=== PATIENT | male | born 1980 | race Caucasian/White ===

== ENCOUNTER 2017-05-29 01:54 | Emergency (ER) | payer OTHER ==
[~2017-05-29] VITALS: Ht 182.9 cm; Wt 86.2 kg
[2017-05-29 05:56] VITALS: BP 134/76
== END 2017-05-29 05:56 | disposition home or self-care (01) ==
LOC: ED 01:54
DX: S81.811A Laceration without foreign body, right lower leg, initial encounter (principal); W25.XXXA Contact with sharp glass, initial encounter; Y93.89 Activity, other specified; Y92.89 Other specified places as the place of occurrence of the external cause; Y99.8 Other external cause status
CPT/HCPCS: 90715

== ENCOUNTER 2020-11-01 12:14 | Emergency (ER) | payer OTHER ==
[~2020-11-01] VITALS: Ht 182.9 cm; Wt 90.7 kg
[2020-11-01 12:24] VITALS: Ht 182.9 cm; Wt 90.7 kg
[2020-11-01 18:40] VITALS: BP 114/77
== END 2020-11-01 18:40 | disposition home or self-care (01) ==
LOC: ED 12:14
DX: S91.012A Laceration without foreign body, left ankle, initial encounter (principal); Z88.0 Allergy status to penicillin; Z90.89 Acquired absence of other organs; X58.XXXA Exposure to other specified factors, initial encounter; Y93.89 Activity, other specified; Y92.89 Other specified places as the place of occurrence of the external cause; Y99.8 Other external cause status
CPT/HCPCS: 90715